=== PATIENT | female | born 1990 | race Asian ===

== ENCOUNTER 2021-11-21 11:00 | Outpatient (RCR) | payer MEDICAID, SELFPAY | END 2021-11-21 12:11 | disposition home or self-care (01) | LOC: HO.PT 11:00 | PROVIDERS: PCP Nurse Practitioner Family; Visit Provider Nurse Practitioner Family | DX: M54.9 Dorsalgia, unspecified (principal) | CPT/HCPCS: 97110; 97112; 97140; 97161 ==

== ENCOUNTER 2023-07-01 16:01 | Outpatient (REF) | payer MEDICAID, SELFPAY ==
--- NOTE | 2023-07-02 11:29 | MHC.AU.MED ---
Medical Clearance for Hearing Instrumentation Date: 07/02/23 Patient Name: Pinky Torres Date of : 1990 Primary Care Provider: Dulce Maria Fam MD Referring Provider: Maria Eugenia Browne NP We have seen your patient on 07/02/23 and have determined that they are a candidate for amplification (See accompanying report). Specifically, they would benefit from: Hearing aid use in both ears There is a statute that addresses Medical Evaluation Requirements prior to fitting a patient with a hearing aid. According to [place] statute 265 CMR:6.03(1), (a) General. Except as provided in 265 CMR 6.03(1)(b), a tumbler dyeing machine operator shall not sell a hearing aid unless the prospective user has presented to the tumbler dyeing machine operator a written statement signed by a licensed physician that states that the patient's hearing loss has been medically evaluated and the patient may be considered a candidate for a hearing aid. The medical evaluation must have taken place within the preceding six months. Please note: Due to the [place] Statute referenced above, we cannot accept a signature other than that of a licensed physician. PUBLIC SAFETY DIRECTOR and PA signatures cannot be accepted. I am in agreement with the above recommendation. There is no medical contraindication for hearing instrumentation. Physician Signature Date Physician Name (Printed)
--- NOTE | 2023-09-18 14:10 | MHC.AU.HA1 ---
Hearing Aid Evaluation Date of Visit: 07/02/23 Staple Shear Operator Used: ASL- In Person Historical Information: Description of Hearing: Profound sensorineural hearing loss bilaterally. Current personal amplification information, if applicable: Oticon Dynamo SP BTEs Summary: Pinky is here for audiologic evaluation and hearing aid discussion. She is a longtime Oticon power BTE user, eligible for new aids through [employer]. Selected Xceed UP BTE in black with shell molds in gel-e-burst with black, blue, and green. Submitted medical clearance. Prior auth required for [facility] plan. ADDENDUM: ADDITIONAL DOCUMENTATION FOR PRIOR AUTHORIZATION (# Pinky's current hearing aids were fit in 2016 and are Super Power devices (fitting range up to 110 dB HL). My recommendation is for updated technology with a stronger amplifier, specifically Oticon Xceed 2 Ultra Power (fitting range up to 120 dB HL) BTEs, which better accommodate her current hearing thresholds. Pinky is a current, lifelong hearing aid user; hearing aids can provide sound awareness for her profound hearing loss. Given length of deafness (since ), Pinky is likely not a candidate for cochlear implants, making hearing aids the most appropriate option for her. Hearing Aid Prescription: Based on the individual?s shared listening needs, communication environments, dexterity, desire for connectivity, and personal preferences, the following prescription for amplification has been made: Right ear: Make, Model, Color: Xceed 2 UP BTE, black Battery Size: 675 Type of Earmold/Dome/CShell/SlimTip: shell earmold Left ear: Left ear prescription to be same as Right Hearing Aid above: Make, Model, Color: Xceed 2 UP BTE, black Battery Size: 675 Type of Earmold/Dome/CShell/SlimTip: shell earmold Accessories/Assistive Technology Recommended: Plan of Care: Patient wishes to purchase hearing aids as prescribed Action Taken/Action Needed: Prior authorization to be requested Medical Clearance to be requested from PCP/ENT Hearing Instrument Fitting to be scheduled when materials arrive Primary Diagnosis: H90.3 Bilateral Sensorineural Hearing Loss Signature: Provider: Davonte Leos, CCC-A
== END 2023-07-01 16:02 | disposition home or self-care (01) ==
LOC: HO.SH 16:01
PROVIDERS: PCP Family Medicine; Visit Provider Nurse Practitioner Family
DX: Z01.118 Encounter for examination of ears and hearing with other abnormal findings (principal); Z46.1 Encounter for fitting and adjustment of hearing aid; H90.3 Sensorineural hearing loss, bilateral
CPT/HCPCS: 92553; 92591; V5275

== ENCOUNTER 2023-12-09 14:44 | Outpatient (REF) | payer MEDICAID, SELFPAY | END 2023-12-09 14:45 | disposition home or self-care (01) | LOC: HO.HAP 14:44 | PROVIDERS: Visit Provider Family Medicine | DX: Z46.1 Encounter for fitting and adjustment of hearing aid (principal); H90.3 Sensorineural hearing loss, bilateral | CPT/HCPCS: V5011; V5160; V5261; V5264; V5266 ==

== ENCOUNTER 2024-01-07 14:35 | Outpatient (REF) | payer MEDICAID, SELFPAY | END 2024-01-07 14:36 | disposition home or self-care (01) | LOC: HO.HAP 14:35 | PROVIDERS: Visit Provider Family Medicine | DX: Z13.89 Encounter for screening for other disorder (principal) ==